=== PATIENT | female | born 1965 | race Caucasian/White ===

== ENCOUNTER 2017-07-15 07:58 | Outpatient (CLI) | payer BC | END 2017-07-15 07:59 | disposition home or self-care (01) | LOC: BICMAMMO 07:58 | PROVIDERS: ATTEND Family Medicine | DX: Z12.31 Encounter for screening mammogram for malignant neoplasm of breast (principal) | CPT/HCPCS: 77063; 77067; G0202 ==

== ENCOUNTER 2018-07-18 11:14 | Outpatient (CLI) | payer BC | END 2018-07-18 11:15 | disposition home or self-care (01) | LOC: BICMAMMO 11:14 | PROVIDERS: ATTEND Family Medicine | DX: Z12.31 Encounter for screening mammogram for malignant neoplasm of breast (principal) | CPT/HCPCS: 77063; 77067 ==

== ENCOUNTER 2018-12-27 08:26 | Outpatient (CLI) | payer BC ==
--- NOTE | 2018-12-27 10:58 | BD ---
Exam: DEXA Bone Density 12/27/18 HISTORY: Postmenopausal. Lumbar Spine: BMD (g/cm2) T-SCORE L1 0.798 -1.7 L2 0.814 -1.9 L3 0.796 -2.6 L4 0.817 -2.2 L1-L4 0.807 -2.2 Left Femoral Neck: 0.664 -1.7 Total Femur: 0.921 -0.2 Impression: 1. Osteopenia of the lumbar spine and left femoral neck. Ten year fracture risk for major osteoporotic fracture is 6.7% with hip fracture of 0.6%. These frac ture probabilities are calculated for an untreated patient. POS: [facility]
== END 2018-12-27 08:27 | disposition home or self-care (01) ==
LOC: BICMAMMO 08:26
PROVIDERS: ATTEND Nurse Practitioner Family
DX: Z13.820 Encounter for screening for osteoporosis (principal); M85.89 Other specified disorders of bone density and structure, multiple sites
CPT/HCPCS: 77080

== ENCOUNTER 2019-06-27 11:54 | Outpatient (CLI) | payer BC ==
--- NOTE | 2019-06-27 14:02 | MMO ---
Bilateral MAMMO Bilat Screen [facility]. CLINICAL HISTORY: Patient is 53 years old and is seen for screening. The patient has no family history of breast cancer. The patient has no personal history of cancer. VIEWS: The views performed were: bilateral craniocaudal with tomosynthesis and bilateral mediolateral oblique with tomosynthesis. FILMS COMPARED: The present examination has been compared to prior imaging studies performed at [facility] on 07/16/2015, 07/21/2016, 07/15/2017 and 07/18/2018. This study has been interpreted with the assistance of computer-aided detection. MAMMOGRAM FINDINGS: There are scattered fibroglandular densities. There are no suspicious masses, suspicious calcifications, or new areas of architectural distortion. IMPRESSION: THERE IS NO MAMMOGRAPHIC EVIDENCE OF MALIGNANCY. A ROUTINE FOLLOW-UP MAMMOGRAM IN 1 YEAR IS RECOMMENDED. THE RESULTS OF THIS EXAM WERE SENT TO THE PATIENT. ACR BI-RADS Category 1 - Negative MAMMOGRAPHY NOTE: 1. A negative mammogram report should not delay a biopsy if a dominant of clinically suspicious mass is present. 2. Approximately 10% to 15% of breast cancers are not detected by mammography. 3. Adenosis and dense breasts may obscure an underlying neoplasm. Reported by: ROSA AGOSTO MD Electonically Signed: [id number]
== END 2019-06-27 11:55 | disposition home or self-care (01) ==
LOC: BICMAMMO 11:54
PROVIDERS: ATTEND Family Medicine
DX: Z12.31 Encounter for screening mammogram for malignant neoplasm of breast (principal)
CPT/HCPCS: 77063; 77067

== ENCOUNTER 2020-06-20 08:56 | Outpatient (CLI) | payer BC ==
--- NOTE | 2020-06-20 09:32 | MMO ---
Bilateral MAMMO Bilat Screen [facility]. CLINICAL HISTORY: Patient is 54 years old and is seen for screening. The patient has no family history of breast cancer. The patient has no personal history of cancer. VIEWS: The views performed were: bilateral craniocaudal with tomosynthesis and bilateral mediolateral oblique with tomosynthesis. FILMS COMPARED: The present examination has been compared to prior imaging studies performed at [facility] on 07/21/2016, 07/15/2017, 07/18/2018 and 06/27/2019. This study has been interpreted with the assistance of computer-aided detection. MAMMOGRAM FINDINGS: There are scattered fibroglandular densities. There are no suspicious masses, suspicious calcifications, or new areas of architectural distortion. IMPRESSION: THERE IS NO MAMMOGRAPHIC EVIDENCE OF MALIGNANCY. A ROUTINE FOLLOW-UP MAMMOGRAM IN 1 YEAR IS RECOMMENDED. THE RESULTS OF THIS EXAM WERE SENT TO THE PATIENT. ACR BI-RADS Category 1 - Negative MAMMOGRAPHY NOTE: 1. A negative mammogram report should not delay a biopsy if a dominant of clinically suspicious mass is present. 2. Approximately 10% to 15% of breast cancers are not detected by mammography. 3. Adenosis and dense breasts may obscure an underlying neoplasm. Reported by: TINA DURAN MD Electonically Signed: [id number]
--- NOTE | 2020-06-20 11:38 | BD ---
BONE DENSITOMETRY: INDICATION: Postmenopausal screening. FINDINGS: Lumbar Spine: BMD (g/cm2) L1 0.767 T-Score: -2.0 L2 0.844 T-Score: -1.7 L3 0.751 T-Score: -3.0 L4 0.816 T-Score: -2.2 L1-L4 0.796 T-Score: -2.3 Femoral Neck: 0.686 T-Score: -1.5 Total Femur: 0.825 T-Score: -1.0 Impression: Bone mineral density of the lumbar spine and femoral neck both indicate osteopenia. POS: [facility]
== END 2020-06-20 08:57 | disposition home or self-care (01) ==
LOC: BICMAMMO 08:56
PROVIDERS: ATTEND Nurse Practitioner Family
DX: Z12.31 Encounter for screening mammogram for malignant neoplasm of breast (principal); Z13.820 Encounter for screening for osteoporosis; M85.89 Other specified disorders of bone density and structure, multiple sites
CPT/HCPCS: 77063; 77067; 77080

== ENCOUNTER 2020-09-11 08:18 | Outpatient (CLI) | payer BC ==
--- NOTE | 2020-09-11 10:55 | CT ---
CT neck soft tissues with contrast: 09/11/2020 HISTORY: 54-year-old female with stridor R 06.1. Evaluate for tracheal stenosis. FINDINGS: The entire trachea, from subglottic level through the kaila, is of normal caliber, and clear. No high-grade narrowing of the nasopharyngeal, oropharyngeal, or laryngeal airways. There is bilateral effacement of the piriform sinuses, left greater than right, nonspecific. The true and false vocal cords are symmetrical relative to each other. Epiglottis appears normal. No high-grade cervical spondylosis and no significant osteophytes protruding into the prevertebral sp clint. Scattered shotty cervical lymph nodes at multiple levels bilaterally. No worrisome significantly enla rged cervical lymph nodes. Nonspecific 1 x 1.4 x 0.7 cm left thyroid noncalcified nodule. No thyromegaly. Bilateral palatine tonsils symmetrically mildly prominent. Otherwise no major pathology identified involving parapharyngeal, retropharyngeal, perivertebral, pos terior cervical, parotid, submandibular, forming department supervisor, or carotid, spaces. No significant carotid artery atheromatous plaque or stenosis. IMPRESSION: 1. Normal trachea. 2. No compelling evidence of major pathology in the neck.
--- NOTE | 2020-09-11 11:00 | CT ---
CT THORAX WITH CONTRAST: DATE: 09/11/2020 HISTORY: 54-year-old female with stridor COMPARISON: none FINDINGS: Trachea and bilateral mainstem bronchi are patent and clear. No consolidation, pleural effusion, pneumothorax, or bullous disease. No suspicious pulmonary mass. No mediastinal or hilar lymphadenopathy. No pericardial effusion. No thoracic aortic aneurysm, dissection, or atherosclerosis. No obvious coronary calcified plaque. No thrombus in pulmonary trunk or left and right main pulmonary arteries. Low-grade thoracic spondylosis. No destructive osseous lesion. IMPRESSION: Negative
[2020-09-11] MEDS ORDERED: Iopamidol 370 76% 100 ML VIAL ONE (14:16)
== END 2020-09-11 08:19 | disposition home or self-care (01) ==
LOC: CT 08:18
PROVIDERS: ATTEND Otolaryngology Plastic Surgery within the Head & Neck
DX: R06.1 Stridor (principal)
CPT/HCPCS: 70491; 71260; Q9967

== ENCOUNTER 2021-06-23 09:02 | Outpatient (CLI) | payer BC | END 2021-06-23 09:03 | disposition home or self-care (01) | LOC: BICMAMMO 09:02 | PROVIDERS: ATTEND Obstetrics & Gynecology | DX: Z12.31 Encounter for screening mammogram for malignant neoplasm of breast (principal); M85.851 Other specified disorders of bone density and structure, right thigh; M85.852 Other specified disorders of bone density and structure, left thigh; M81.0 Age-related osteoporosis without current pathological fracture | CPT/HCPCS: 77063; 77067; 77080 ==

== ENCOUNTER 2022-06-24 08:27 | Outpatient (CLI) | payer BC | END 2022-06-24 08:28 | disposition home or self-care (01) | LOC: BICMAMMO 08:27 | PROVIDERS: ATTEND Obstetrics & Gynecology | DX: Z12.31 Encounter for screening mammogram for malignant neoplasm of breast (principal); N64.89 Other specified disorders of breast | CPT/HCPCS: 77063; 77067 ==

== ENCOUNTER → 2022-07-16 | Day surgery (SDC) | payer BC | END | disposition home or self-care (01) | LOC: BICULT 12:27 | PROVIDERS: ATTEND Obstetrics & Gynecology | PROC: 0H9U3ZX Drainage of Left Breast, Percutaneous Approach, Diagnostic (ICD-10-PCS; principal; 2022-07-16) | DX: N60.12 Diffuse cystic mastopathy of left breast (principal); N60.82 Other benign mammary dysplasias of left breast; N62 Hypertrophy of breast; Z88.1 Allergy status to other antibiotic agents | CPT/HCPCS: 19083; 88305 ==

== ENCOUNTER 2023-06-28 08:14 | Outpatient (CLI) | payer BC | END 2023-06-28 08:15 | disposition home or self-care (01) | LOC: BICMAMMO 08:14 | PROVIDERS: ATTEND Nurse Practitioner Family | DX: Z12.31 Encounter for screening mammogram for malignant neoplasm of breast (principal) | CPT/HCPCS: 77063; 77067 ==

== ENCOUNTER 2024-08-29 10:03 | Outpatient (CLI) | payer BC | END 2024-08-29 10:04 | disposition home or self-care (01) | LOC: BICMAMMO 10:03 | PROVIDERS: ATTEND Obstetrics & Gynecology | DX: Z12.31 Encounter for screening mammogram for malignant neoplasm of breast (principal) | CPT/HCPCS: 77063; 77067 ==